=== PATIENT | female | born 1970 | race Caucasian/White ===

== ENCOUNTER 2020-07-07 06:35 | Day surgery (SDC) | payer BC ==
[2020-07-07] VITALS (10 sets, daily range): BP systolic 107–141; BP diastolic 73–91
[~2020-07-07] VITALS: Ht 170.2 cm; Wt 66.4 kg
[2020-07-07] MEDS ORDERED: HYDR-3972 PO (06:59)
[2020-07-07] MEDS ORDERED: normal saline 1000ml 1,000 ML IV PRN (07:00)
[2020-07-07] MEDS ORDERED: fentaNYL/PF 50MCG/1 ML 2ML syringe ONE (08:54)
[2020-07-07] MEDS ORDERED: midazolam 1 mg/ML 2ml injection ONE (08:54)
[2020-07-07] MEDS ORDERED: normal saline 1000ml 1,000 ML IV SCH (09:00)
== END 2020-07-07 10:40 | disposition home or self-care (01) ==
LOC: SSTAY O 06:35
PROVIDERS: ATTEND Radiology Diagnostic Radiology
DX: R19.04 Left lower quadrant abdominal swelling, mass and lump (principal); Z79.899 Other long term (current) drug therapy; Z85.42 Personal history of malignant neoplasm of other parts of uterus; Z90.710 Acquired absence of both cervix and uterus; Z98.890 Other specified postprocedural states; F17.210 Nicotine dependence, cigarettes, uncomplicated
CPT/HCPCS: 49180; 77012; 99152; 99153; J2250; J3010; J7030